=== PATIENT | female | born 1945 | race Caucasian/White ===

== ENCOUNTER → 2018-08-22 | Outpatient (CLI) | payer MEDICARE ==
[~2018-08-22] MED LIST: ASPI81TA45 PO; OXYC-306 PO; ZOLP10TA PO
[2018-08-22 11:37] LABS: BASOPHILS # (AUTO) 0.04 x10^3/uL (0-0.1); BASOPHILS % (AUTO) 0 % (0-1); EOSINOPHILS # (AUTO) 0.24 x10^3/uL (0-0.4); EOSINOPHILS % (AUTO) 3 % (1-7); LYMPHOCYTES % (AUTO) 28 % (22-44); MD NO; MEAN CORPUSCULAR HEMOGLOBIN 31.9 pg (27.0-34.8); MEAN CORPUSCULAR HGB CONC 33.4 g/dL (32.4-35.8); MEAN CORPUSCULAR VOLUME 95.7 fL (80-100); MONOCYTES % (AUTO) 6 % (2-9); NEUTROPHILS # (AUTO) 5.96 x10^3/uL (1.8-6.8); NEUTROPHILS % (AUTO) 63 % (42-75); PLATELET COUNT 379 x10^3/uL (130-400); RED BLOOD COUNT 4.89 x10^6/uL (3.82-5.3); RED CELL DISTRIBUTION WIDTH 13.5 % (9.6-15.2)
[2018-08-22 12:20] LABS: CHLORIDE 109 mmol/L (98-107)
[2018-08-22 12:31] LABS: ALANINE AMINOTRANSFERASE 26 U/L (12-78); ALBUMIN 3.9 g/dL (3.4-5.0); ALKALINE PHOSPHATASE 56 U/L (45-117); ANION GAP 6 mmol/L (5-15); BILIRUBIN,TOTAL 0.8 mg/dL (0.2-1.0); CREATININE 0.76 mg/dL (0.55-1.02); TOTAL PROTEIN 7.9 g/dL (6.4-8.2)
== END | disposition home or self-care (01) ==
LOC: STAR 10:01
PROVIDERS: ATTEND Surgery
DX: Z01.818 Encounter for other preprocedural examination (principal); I65.21 Occlusion and stenosis of right carotid artery; Z88.8 Allergy status to other drugs, medicaments and biological substances
CPT/HCPCS: 36415; 80053; 85025; 93005

== ENCOUNTER 2018-09-01 10:04 | Inpatient (IN) | payer MEDICARE ==
[~2018-09-01] VITALS: Ht 162.6 cm; Wt 80.8 kg
[2018-09-01 11:33] VITALS: BP 104/69
[2018-09-01] MEDS ORDERED: LACTATED RINGERS 1,000 ML IV SCH ×4 (11:38→23:30)
[2018-09-01] MEDS ORDERED: SIMV20TA3 PO (11:39)
[2018-09-01] MEDS ORDERED: ONDA4TAB7 PO (11:39)
[2018-09-01] MEDS ORDERED: VITAMIN D PO (11:39)
[2018-09-01] MEDS ORDERED: LIDOCAINE-MPF 1%, 2ML ONE (11:59)
[2018-09-01] MEDS ORDERED: THROMBIN 20,000 UNIT VIAL TP ONE (15:06)
[2018-09-01] MEDS ORDERED: PROTAMINE SULFATE 10 MG/ML, 5ML ONE (15:06)
[2018-09-01] MEDS ORDERED: HEPARIN 1,000 UNITS/ML, 10ML ONE (15:06)
[2018-09-01] MEDS ORDERED: HEPARIN 5,000 UNITS/ML, 1ML ONE (15:06)
[2018-09-01] MEDS ORDERED: PAPAVERINE 30 MG/ML, 2ML ONE (15:06)
[2018-09-01] MEDS ORDERED: LIDOCAINE 1%, 20ML ONE (15:06)
[2018-09-01] MEDS ORDERED: BUPIVACAINE/PF-EPI 0.5% 1:200K ONE (15:06)
[2018-09-01] MEDS ORDERED: BACITRACIN 50,000 UNIT ONE (15:07)
[2018-09-01] MEDS ORDERED: FENTANYL PF 250 MCG/5ML ONE (15:19)
[2018-09-01] MEDS ORDERED: PROPOFOL 10 MG/ML, 20ML ONE (15:20)
[2018-09-01] MEDS ORDERED: EPHEDRINE 50 MG/ML, 1ML ONE (15:20)
[2018-09-01] MEDS ORDERED: DEXAMETHASONE 4 MG/ML, 1ML ONE (15:20)
[2018-09-01] MEDS ORDERED: ONDANSETRON 2MG/ML, 2ML ONE (15:20)
[2018-09-01] MEDS ORDERED: SUCCINYLCHOLINE 20 MG/ML, 10ML ONE (15:20)
[2018-09-01] MEDS ORDERED: LABETALOL 5MG/ML, 20ML IV PRN (16:00)
[2018-09-01] MEDS ORDERED: HYDROmorphone 2 MG/ML, 1ML IVPush PRN (16:00)
[2018-09-01] MEDS ORDERED: hydrALAzine 20 MG/ML, 1ML IV PRN (16:00)
[2018-09-01] MEDS ORDERED: DIAZEPAM 5 MG/ML, 2ML IVPush PRN (16:00)
[2018-09-01] MEDS ORDERED: ACETAMINOPHEN 325 MG TABLET PO PRN (16:00)
[2018-09-01] MEDS ORDERED: PROMETHAZINE 25 MG/ML, 1ML IV PRN (16:00)
[2018-09-01] MEDS ORDERED: ALBUTEROL SULFATE 2.5 MG/3 ML NPPB PRN (16:00)
[2018-09-01] MEDS ORDERED: PROMETHAZINE 25 MG/ML, 1ML ONE (17:33)
[2018-09-01] MEDS ORDERED: ACETAMINOPHEN 650 MG/20.3 ML UDC ONE (17:42)
[2018-09-01] MEDS ORDERED: OXYcodone 5 MG/5 ML ORAL.SOL UDC ONE ×2 (17:42→18:04)
[2018-09-01] MEDS: OXYcodone 5 MG/5 ML ORAL.SOL UDC PO PRN ×2 (17:50→18:07)
[2018-09-01] MEDS ORDERED: FENTANYL PF 100 MCG/2ML ONE (18:03)
[2018-09-01] MEDS: FENTANYL PF 100 MCG/2ML IV PRN ×4 (18:07→18:40)
[2018-09-01] MEDS ORDERED: ACETAMINOPHEN 650 MG SUPP PR PRN ×2 (19:30→23:45)
[2018-09-01] MEDS ORDERED: ENOXAPARIN 40 MG/0.4 ML SQ SCH ×2 (19:30→23:30)
[2018-09-01] MEDS ORDERED: CEFAZOLIN PMX 1GM/50ML 50 ML IVPB SCH ×2 (19:30→23:30)
[2018-09-01] MEDS ORDERED: ZOLPIDEM 10MG TABLET PO PRN ×2 (19:30→23:30)
[2018-09-01] MEDS ORDERED: PHENYLEPHRINE 10 MG in SODIUM CHLORIDE 0.9% 249 ML IV PRN ×2 (20:00→23:45)
[2018-09-01] MEDS ORDERED: OXYcodone/APAP 7.5/325MG TABLET PO SCH (21:00)
[2018-09-01] MEDS ORDERED: SIMVASTATIN 20 MG TABLET PO SCH (21:00)
[2018-09-01 21:04] VITALS: BP 103/50
[2018-09-02] MEDS: CEFAZOLIN PMX 1GM/50ML 50 ML IVPB SCH ×2 (00:27→08:43)
[2018-09-02 05:43] VITALS: BP 95/42
[2018-09-02] MEDS ORDERED: OXYcodone/APAP 7.5/325MG TABLET PO SCH (09:00)
[2018-09-02] MEDS ORDERED: CHOLECALCIFEROL 5,000u TAB PO SCH ×2 (09:00)
[2018-09-02] MEDS ORDERED: ASPIRIN 81 MG TABLET EC PO SCH ×2 (09:00)
[2018-09-02] MEDS ORDERED: SIMVASTATIN 20 MG TABLET PO SCH (21:00)
[2018-09-02] MEDS ORDERED: ENOXAPARIN 40 MG/0.4 ML SQ SCH (21:00)
== END 2018-09-02 13:35 | disposition home or self-care (01) | DRG 39 ==
LOC: ORIP 11:11 → CCU 20:38
PROVIDERS: ADMIT Surgery; ATTEND Surgery
PROC: 03UH0JZ Supplement Right Common Carotid Artery with Synthetic Substitute, Open Approach (ICD-10-PCS; 2018-09-01)
PROC: 03HY32Z Insertion of Monitoring Device into Upper Artery, Percutaneous Approach (ICD-10-PCS; 2018-09-01)
PROC: 03CM0ZZ Extirpation of Matter from Right External Carotid Artery, Open Approach (ICD-10-PCS; 2018-09-01)
PROC: 03CH0Z6 (ICD-10-PCS; principal; 2018-09-01 13:30)
DX: I65.21 Occlusion and stenosis of right carotid artery (principal); Z96.642 Presence of left artificial hip joint; F17.210 Nicotine dependence, cigarettes, uncomplicated; Z88.8 Allergy status to other drugs, medicaments and biological substances; Z90.49 Acquired absence of other specified parts of digestive tract; Z90.710 Acquired absence of both cervix and uterus; Z82.49 Family history of ischemic heart disease and other diseases of the circulatory system; Z79.899 Other long term (current) drug therapy
CPT/HCPCS: 36415; 86850; 86900; 87081; C1729; G0378; J0690; J1100; J1644; J1650; J2405; J2550; J2704; J2720; J3010; C1781; J0330; J2370; J2440; J7050; J7120

== ENCOUNTER → 2019-04-10 | Outpatient (CLI) | payer MEDICARE ==
[~2019-04-10] MED LIST changes: +ASCO500T8 PO; +CLOP75TA PO; +MAGN400C PO; +NAPR220C2 PO; +ONDA4TAB7 PO; +SIMV20TA3 PO; +VITAMIN D PO
[2019-04-10 12:34] LABS: BASOPHILS # (AUTO) 0.02 x10^3/uL (0-0.1); BASOPHILS % (AUTO) 0 % (0-1); EOSINOPHILS # (AUTO) 0.38 x10^3/uL (0-0.4); EOSINOPHILS % (AUTO) 4 % (1-7); LYMPHOCYTES % (AUTO) 28 % (22-44); MD NO; MEAN CORPUSCULAR HEMOGLOBIN 32.8 pg (27.0-34.8); MEAN CORPUSCULAR HGB CONC 32.9 g/dL (32.4-35.8); MEAN CORPUSCULAR VOLUME 99.7 fL (80-100); MEAN PLATELET VOLUME 7.1 fL (7.4-10.4); MONOCYTES # (AUTO) 0.67 x10^3/uL (0.2-0.8); MONOCYTES % (AUTO) 7 % (2-9); NEUTROPHILS # (AUTO) 5.48 x10^3/uL (1.8-6.8); NEUTROPHILS % (AUTO) 61 % (42-75); PLATELET COUNT 404 x10^3/uL (130-400); RED BLOOD COUNT 4.55 x10^6/uL (3.82-5.3)
[2019-04-10 12:44] LABS: ALBUMIN 3.9 g/dL (3.4-5.0); ANION GAP 6 mmol/L (5-15); CALCIUM 9.3 mg/dL (8.5-10.1); CHLORIDE 110 mmol/L (98-107)
[2019-04-10 12:50] LABS: ALANINE AMINOTRANSFERASE 32 U/L (12-78); ALKALINE PHOSPHATASE 50 U/L (45-117); CREATININE 0.77 mg/dL (0.55-1.02)
== END | disposition home or self-care (01) ==
LOC: STAR 11:06
PROVIDERS: ATTEND Surgery
CPT/HCPCS: 36415; 71046; 80053; 85025; 93005

== ENCOUNTER → 2019-04-17 | Outpatient (CLI) | payer MEDICARE ==
[~2019-04-17] MED LIST changes: +HYDR-3237 PO; +OMNIPAQUE 350 MG/ML, 75ML BOTTLE ONE
== END | disposition home or self-care (01) ==
LOC: RAD 10:21
PROVIDERS: ATTEND Surgery
DX: R91.8 Other nonspecific abnormal finding of lung field (principal); R59.0 Localized enlarged lymph nodes; M48.56XA Collapsed vertebra, not elsewhere classified, lumbar region, initial encounter for fracture; K76.89 Other specified diseases of liver; I70.0 Atherosclerosis of aorta; I65.23 Occlusion and stenosis of bilateral carotid arteries; Z87.891 Personal history of nicotine dependence
CPT/HCPCS: 71260; Q9967

== ENCOUNTER 2019-04-21 19:14 | Emergency (ER) | payer MEDICARE ==
[~2019-04-21] VITALS: Ht 162.6 cm; Wt 80.4 kg
[~2019-04-21 19:14] MED LIST changes: -OMNIPAQUE 350 MG/ML, 75ML BOTTLE ONE
[2019-04-21 19:56] LABS: BASOPHILS # (AUTO) 0.04 x10^3/uL (0-0.1); BASOPHILS % (AUTO) 0 % (0-1); EOSINOPHILS # (AUTO) 0.18 x10^3/uL (0-0.4); EOSINOPHILS % (AUTO) 2 % (1-7); LYMPHOCYTES # (AUTO) 2.95 x10^3/uL (1-3.4); LYMPHOCYTES % (AUTO) 28 % (22-44); MD NO; MEAN CORPUSCULAR HEMOGLOBIN 32.2 pg (27.0-34.8); MEAN CORPUSCULAR HGB CONC 32.3 g/dL (32.4-35.8); MEAN CORPUSCULAR VOLUME 99.6 fL (80-100); MEAN PLATELET VOLUME 6.8 fL (7.4-10.4); MONOCYTES # (AUTO) 0.71 x10^3/uL (0.2-0.8); MONOCYTES % (AUTO) 7 % (2-9); NEUTROPHILS # (AUTO) 6.63 x10^3/uL (1.8-6.8); NEUTROPHILS % (AUTO) 63 % (42-75); PLATELET COUNT 344 x10^3/uL (130-400); RED CELL DISTRIBUTION WIDTH 14.3 % (9.6-15.2)
[2019-04-21 20:05] LABS: ALBUMIN 3.4 g/dL (3.4-5.0); ANION GAP 3 mmol/L (5-15); CALCIUM 8.8 mg/dL (8.5-10.1); CHLORIDE 109 mmol/L (98-107); CREATININE 0.78 mg/dL (0.55-1.02)
[2019-04-21] MEDS ORDERED: MICROFIBRILLAR COLLAGEN 1 GM TP ONE (21:49)
--- NOTE | 2019-04-21 22:02 | NUR ---
WOUND CARE TO L NECK PER ORDERS. SEE WOUND CHARTING.
[2019-04-21 22:39] VITALS: BP 130/58
== END 2019-04-21 22:59 | disposition home or self-care (01) ==
LOC: ED 21:48
DX: S15.002A Unspecified injury of left carotid artery, initial encounter (principal)
CPT/HCPCS: 36415; 80048; 82040; 85025; 93005; 99284

== ENCOUNTER 2019-09-28 07:59 | Emergency (ER) | payer MEDICARE ==
[~2019-09-28] VITALS: Ht 165.1 cm; Wt 72.0 kg
[~2019-09-28 07:59] MED LIST changes: +ACET325T26 PO; +AMIO200T42 PO; +ASCO500T9 PO; +ATOR-2 PO; +BISA10SU4 PR; +CHOL400T2 PO; +FAMO20TA7 PO; +FURO40TA6 PO; +INSU100I11 SQ-INSULIN; +IPRA3AMP30 NPPB; +LIDO700A20 TD; +METO25TA35 PO; +MULT1TAB76 PO; +NYST1000 PO; +RIVA20TA PO; +SIMV20TA19 PO; -SIMV20TA3 PO; +SULF1TAB23 PO; +TRAM50TA2 PO; +TRAZ50TA66 PO; +ZOLP-413 PO
--- NOTE | 2019-09-28 08:15 | NUR ---
LATE ENTRY 0815: PT BIB EMS FROM [facility] FOR [facility] [place], ONGOING PNEUMONIA. PT PLACED ON GURNEY, PT ALTERED, UNKNOWN BASELINE. PER EMS PT IS A&OX2. PT ANSWERED TO NAME AND YES NO QUESTIONS. MUCOUS MEMBRANES DRY, CRACKED BLEEDING LIPS, PT PALE IN COLOR. WEAKNESS IN LOWER EXTREMETIES, CARDIAC SURGEON STRENGTH WEAK BILATERALLY. NO NOTICABLE INJURY OR TRAUMA. DENIES CP. RESPERATIONS EVEN WITH GRUNTING VSS IN ROUTE: 104/60 HR 70S W R BUNDLE, 96% ON 5L. WAS 84% ON 3L AT FACILITY. 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, AND CVA. 24 BUTTERFLY IV IN R WRIST. DIAGNOSED W PNEUMONIA W WORSENING CXR ON 09/25 AT FACILITY, PT INCREASED WEAKNESS AT FACILITY.
--- NOTE | 2019-09-28 08:40 | NUR ---
LATE ENTRY 0840, RN CALLED SON SAGAR SNOW FOR UPDATE AND INFORMATION. SON STATES PATIENT BECAME "WEAKER IN PAST COUPLE DAYS, WAS ABLE TO HAVE CONVERSATIONS. SHE HAD GOOD AND BAD DAYS" SON STATES HE IS COMING INTO VISIT
--- NOTE | 2019-09-28 08:48 | NUR ---
LATE ENTRY 5537: [facility] MONITOR APPLIED
--- NOTE | 2019-09-28 08:55 | NUR ---
LATE ENTRY 0855: RN AT BEDSIDE Lauren FLORES TO ASSESS PT. PT IS PALE IN COLOR, UNRESPONSIVE TO VERBAL AND PAIN STIMULI. HR AMY, PT TRANSFERRED TO TRAUMA ROOM .
[2019-09-28 09:00] VITALS: BP 49/33
[2019-09-28] MEDS ORDERED: SODIUM CHLORIDE 0.9% 1,000ML IVBOLUS ONE (09:00)
[2019-09-28] MEDS ORDERED: AZITHROMYCIN 500 MG in SODIUM CHLORIDE 0.9% 250 ML IV ONE (09:00)
[2019-09-28] MEDS ORDERED: CEFTRIAXONE PMX 1GM/50ML 50 ML IVPB ONE (09:00)
[2019-09-28] MEDS ORDERED: SODIUM CHLORIDE FLUSH 10ML SYR IVF ONE (09:00)
[2019-09-28] MEDS ORDERED: MORPHINE SULFATE 4 MG/ML, 1ML ONE (09:17)
--- NOTE | 2019-09-28 09:23 | NUR ---
PT PRONOUNCED BY DR FLORES.
--- NOTE | 2019-09-28 09:30 | NUR ---
fsbs 141. checked with mrn: "[id number]". VOICEMAIL LEFT AT #[phone] FOR "VO" TO LINK RESULTS
--- NOTE | 2019-09-28 09:32 | NUR ---
LATE ENTRY 0932: [employer] CALLED
[2019-09-28] MEDS ORDERED: DEXTROSE 50%, 50ML SYRINGE ONE (09:34)
[2019-09-28] MEDS ORDERED: EPINEPHRINE SYRINGE 0.1 MG/ML, 10ML ONE (09:35)
--- NOTE | 2019-09-28 09:42 | NUR ---
LATE ENTRY FOR 854. PT MOVED TO TRAUMA 4. PER REPORT PT FROM [facility]. PT HAD CABG 6 W[address]KS AGO [address] [facility], VASCULAR ISSUES, DX WITH PNEUMONIA 1 WEEK AGO. HAD REPEAT CXR WITH NO IMPROVEMENT. MENTAL STATUS CHANGES, A&O X1. PT WAS SPEAKING TO SON 3 DAYS AGO. WAS ANSWERING SIMPLE YES/NO QUESTIONS FOR PRIMARY RN. PT ARRIVES TO ROOM NON RESPONSIVE, AGONAL RESPIRATIONS. PT WITH 24G IN RW, FLUSHES SLOWLY. PT HR 20'S. BP 59/26, DR FLORES AWARE. 0902 PT GIVEN 1/2 AMP ATROPINE, 20 G IV PLACED IN RIGHT THUMB, NS W/O. 0904 PT INTUBATED WITH 7.5 ETT POSITIVE COLOR CHANGE. 0905 NO PULSES, CPR INITIATED, SEE CPR DATA SHEET.
--- NOTE | 2019-09-28 10:00 | NUR ---
PTS SON AT BEDSIDE. PROVIDED WITH MORTUARY INFORMATION. FATHER WANDA AVAILABLE FOR PT
--- NOTE | 2019-09-28 11:18 | NUR ---
LATE ENTRY FOR 901: EKG COMPLETED BY LINDA OLIVO.
== END 2019-09-28 11:31 | disposition expired ==
LOC: ED 09:10
DX: I46.9 Cardiac arrest, cause unspecified (principal); I95.9 Hypotension, unspecified; R06.00 Dyspnea, unspecified; Z20.828 Contact with and (suspected) exposure to other viral communicable diseases; R00.1 Bradycardia, unspecified; I10 Essential (primary) hypertension; I48.91 Unspecified atrial fibrillation; E78.5 Hyperlipidemia, unspecified; Z86.73 Personal history of transient ischemic attack (TIA), and cerebral infarction without residual deficits; Z90.89 Acquired absence of other organs; Z90.49 Acquired absence of other specified parts of digestive tract
CPT/HCPCS: 31500; 71045; 92950; 93005; 99285; U0001